=== PATIENT | male | born 1955 | race African-American/Black ===

== ENCOUNTER → 2016-08-14 | Outpatient (CLI) | payer OTHER ==
[~2016-08-14] MED LIST: ALEVE LIQCAPS PO; AMLODIPINE BESY10 MG PO; ASPIRIN E.C. 8181 MG PO; BYSTOLIC5 MG PO; ENALAPRIL20 MG PO; EXCEDRIN MIGRAI1 TAB PO; EXCEDRIN1 TAB PO; FLEXERIL10 MG PO; LORTAB 5/500 501 TAB PO; NORCO 325 MG-51 TAB PO; NORVASC 10MG10 MG PO; PRAVACHOL 40MG40 MG PO; PRINIVIL20 MG PO; SIMVASTATIN10 MG PO; VITAMIN B12 PO
[2016-08-14 17:56] LABS: BASO % 0.8 % (0.0-2.0); EOS # 0.1 (0.0-0.7); EOS % 2.6 % (0-4.0); GRAN # 2.5 (1.4-6.5); GRAN % 50.3 % (42.2-75.2); HEMATOCRIT 47.1 % (42.0-52.0); HEMOGLOBIN 15.7 g/dl (13.5-18.0); LYMPH # 1.8 (1.2-3.4); LYMPH % 35.5 % (20.0-51.0); MEAN CELL VOLUME 86 fl (80.0-100.0); MEAN CORPUSCULAR HEMOGLOBIN 29 pg (27.0-31.0); MEAN CORPUSCULAR HGB CONC 33 g/dl (33.0-37.0); MEAN PLATELET VOLUME 10.6 fl (7.4-10.4); MONO # 0.5 (0.1-0.6); MONO % 10.6 % (1.7-9.3); PLATELET COUNT 232 K/mm3 (130-400); RED BLOOD COUNT 5.48 M/mm3 (4.20-5.60); REDCELL DISTRIBUTION WIDTH-CV 13.1 % (11.5-14.5)
[2016-08-14 17:58] LABS: ADJUSTED CALCIUM 9.8 mg/dL (8.4-10.2); ALBUMIN 4.2 gm/dL (3.5-5.0); BILIRUBIN,TOTAL 0.9 mg/dL (0.0-1.0); CREATININE, serum 1.1 mg/dL (0.66-1.25); POTASSIUM 4.4 mmol/L (3.4-5.0); TOTAL PROTEIN 7.5 gm/dL (6.4-8.2)
[2016-08-14 18:07] LABS: PROTHROMBIN TIME 10.9 SECONDS (9.7-12.8)
== END ==
LOC: COL.LAB 16:29
PROVIDERS: Orthopaedic Surgery
DX: Z01.812 Encounter for preprocedural laboratory examination (principal)

== ENCOUNTER → 2016-08-23 | Outpatient (CLI) | payer OTHER ==
[2016-08-23 18:46] LABS: PH 6 (5-8); SQUAMOUS EPITHELIAL None Seen /hpf; URINE APPEARANCE Clear; URINE BACTERIA None Seen /hpf; URINE BILIRUBIN Negative (NEGATIVE); URINE BLOOD Negative (NEGATIVE); URINE COLOR Straw; URINE GLUCOSE Negative (NEGATIVE); URINE KETONE Negative (NEGATIVE); URINE RBC None Seen /hpf; URINE UROBILINOGEN Negative (NEGATIVE); URINE WBC 0-2 /hpf
== END ==
LOC: COL.LAB 17:43
PROVIDERS: Neurological Surgery
DX: Z01.812 Encounter for preprocedural laboratory examination (principal); M25.862 Other specified joint disorders, left knee

== ENCOUNTER → 2016-09-24 | Outpatient (CLI) | payer OTHER | LOC: COL.LAB 16:11 | DX: R31.9 Hematuria, unspecified (principal) | CPT/HCPCS: G0103 ==

== ENCOUNTER → 2016-09-26 | Outpatient (CLI) | payer OTHER ==
[2016-09-26 17:40] LABS: BASO # 0.1 (0.0-0.2); BASO % 0.9 % (0.0-2.0); EOS # 0.2 (0.0-0.7); GRAN # 2.7 (1.4-6.5); GRAN % 49.9 % (42.2-75.2); HEMATOCRIT 51.2 % (42.0-52.0); HEMOGLOBIN 17.1 g/dl (13.5-18.0); LYMPH % 35.8 % (20.0-51.0); MEAN CELL VOLUME 88 fl (80.0-100.0); MEAN CORPUSCULAR HEMOGLOBIN 29 pg (27.0-31.0); MEAN CORPUSCULAR HGB CONC 33 g/dl (33.0-37.0); MEAN PLATELET VOLUME 10.6 fl (7.4-10.4); MONO # 0.5 (0.1-0.6); MONO % 9.2 % (1.7-9.3); PLATELET COUNT 181 K/mm3 (130-400); RED BLOOD COUNT 5.85 M/mm3 (4.20-5.60); REDCELL DISTRIBUTION WIDTH-CV 13.6 % (11.5-14.5); WHITE BLOOD COUNT 5.5 K/mm3 (4.8-10.8)
== END ==
LOC: COL.LAB 17:09
PROVIDERS: Registered Nurse
DX: E78.2 Mixed hyperlipidemia (principal)

== ENCOUNTER → 2016-09-30 | Outpatient (CLI) | payer OTHER ==
[2016-09-30 18:01] LABS: PH 5 (5-8); SQUAMOUS EPITHELIAL 0-2 /hpf; URINE APPEARANCE Clear; URINE BACTERIA None Seen /hpf; URINE BILIRUBIN Negative (NEGATIVE); URINE BLOOD Negative (NEGATIVE); URINE COLOR Yellow; URINE GLUCOSE Negative (NEGATIVE); URINE KETONE Negative (NEGATIVE); URINE RBC 0-2 /hpf; URINE UROBILINOGEN Negative (NEGATIVE); URINE WBC 0-2 /hpf
== END ==
LOC: COL.LAB 17:19
PROVIDERS: Registered Nurse
DX: R31.9 Hematuria, unspecified (principal)

== ENCOUNTER → 2016-10-22 | Outpatient (CLI) | payer OTHER | LOC: COL.RAD 13:14 | DX: M79.605 Pain in left leg (principal); R60.0 Localized edema ==

== ENCOUNTER → 2016-11-28 | Outpatient (CLI) | payer OTHER | LOC: COL.RAD 14:36 | DX: N20.0 Calculus of kidney (principal); N40.0 Benign prostatic hyperplasia without lower urinary tract symptoms | CPT/HCPCS: Q9967 ==

== ENCOUNTER 2017-09-21 11:42 | Emergency (ER) | payer OTHER ==
[~2017-09-21] VITALS: Ht 182.9 cm; Wt 99.1 kg
[2017-09-21 11:46] VITALS: TEMP 98.1
[2017-09-21] MEDS ORDERED: VASOTEC20 MG PO (11:56)
[2017-09-21] MEDS ORDERED: BYSTOLIC10 MG PO (11:57)
[2017-09-21] MEDS ORDERED: ASPIRIN 32325 MG/TAB PO (11:57)
[2017-09-21] MEDS ORDERED: NORCO 325 MG-51 TAB PO (12:26)
[2017-09-21 12:33] VITALS: BP 145/99; PULSE 68
== END 2017-09-21 12:34 | disposition home or self-care (01) ==
LOC: COL.ER 11:42
DX: S46.911A Strain of unspecified muscle, fascia and tendon at shoulder and upper arm level, right arm, initial encounter (principal); I10 Essential (primary) hypertension; Z79.82 Long term (current) use of aspirin; X50.0XXA Overexertion from strenuous movement or load, initial encounter

== ENCOUNTER → 2017-10-17 | Outpatient (CLI) | payer OTHER ==
[~2017-10-17] MED LIST changes: +ASPIRIN 32325 MG/TAB PO; +BYSTOLIC10 MG PO; +VASOTEC20 MG PO
== END ==
LOC: COL.RAD 14:55
DX: D17.1 Benign lipomatous neoplasm of skin and subcutaneous tissue of trunk (principal)

== ENCOUNTER → 2018-08-11 | Outpatient (CLI) | payer OTHER | LOC: MHCPAIN 15:27 | DX: G89.29 Other chronic pain (principal); M79.2 Neuralgia and neuritis, unspecified; M25.561 Pain in right knee; M25.562 Pain in left knee | CPT/HCPCS: G0463 ==

== ENCOUNTER → 2018-08-20 | Outpatient (CLI) | payer OTHER | LOC: MHCPAIN 13:54 | DX: M17.12 Unilateral primary osteoarthritis, left knee (principal); M25.562 Pain in left knee ==

== ENCOUNTER → 2018-09-16 | Outpatient (CLI) | payer OTHER | LOC: MHCPAIN 15:19 | DX: G89.29 Other chronic pain (principal); M79.2 Neuralgia and neuritis, unspecified | CPT/HCPCS: G0463 ==

== ENCOUNTER → 2018-10-14 | Outpatient (CLI) | payer OTHER | LOC: MHCPAIN 15:23 | DX: G89.29 Other chronic pain (principal); M79.2 Neuralgia and neuritis, unspecified | CPT/HCPCS: G0463 ==

== ENCOUNTER → 2018-11-05 | Outpatient (CLI) | payer OTHER ==
[2018-11-05 15:33] LABS: BASO # 0.1 (0.0-0.2); EOS # 0.1 (0.0-0.7); EOS % 2.4 % (0-4.0); GRAN # 2.4 (1.4-6.5); GRAN % 48.3 % (42.2-75.2); HEMATOCRIT 51.3 % (42.0-52.0); HEMOGLOBIN 16.9 g/dl (13.5-18.0); LYMPH # 1.8 (1.2-3.4); LYMPH % 35.5 % (20.0-51.0); MEAN CELL VOLUME 88 fl (80.0-100.0); MEAN CORPUSCULAR HEMOGLOBIN 29 pg (27.0-31.0); MEAN CORPUSCULAR HGB CONC 33 g/dl (33.0-37.0); MEAN PLATELET VOLUME 10.3 fl (7.4-10.4); MONO # 0.6 (0.1-0.6); MONO % 12.6 % (1.7-9.3); PLATELET COUNT 203 K/mm3 (130-400); RED BLOOD COUNT 5.81 M/mm3 (4.20-5.60); REDCELL DISTRIBUTION WIDTH-CV 12.4 % (11.5-14.5)
[2018-11-05 15:40] LABS: ALBUMIN 4.3 gm/dL (3.5-5.0); BILIRUBIN,TOTAL 0.6 mg/dL (0.0-1.0); CALCIUM 9.8 mg/dL (8.4-10.2); CHOLESTEROL RISK RATIO 2.3; CREATININE, serum 1.18 (0.66-1.25); POTASSIUM 4.5 mmol/L (3.4-5.0); TOTAL PROTEIN 7.5 gm/dL (6.4-8.2)
[2018-11-05 16:10] LABS: TSH w REFLEX 1.3 uIU/mL (0.465-4.680)
[2018-11-06 22:12] LABS: URINE MICROALBUMIN 0.7 mg/dL (0.0-1.7)
== END ==
LOC: COL.VAS 14:27
PROVIDERS: Registered Nurse
DX: M79.89 Other specified soft tissue disorders (principal); I25.10 Atherosclerotic heart disease of native coronary artery without angina pectoris; I10 Essential (primary) hypertension; E78.2 Mixed hyperlipidemia; Z79.899 Other long term (current) drug therapy; Z96.652 Presence of left artificial knee joint

== ENCOUNTER 2020-07-14 19:13 | Emergency (ER) | payer OTHER ==
[~2020-07-14] VITALS: Ht 182.9 cm; Wt 104.5 kg
[2020-07-14 19:30] VITALS: TEMP 100.1
[2020-07-14 20:16] LABS: ALBUMIN 4.2 gm/dL (3.5-5.0); BILIRUBIN,TOTAL 0.8 mg/dL (0.0-1.0); C-REACTIVE PROTEIN 4.3 mg/dL (0.0-0.9); CALCIUM 8.9 mg/dL (8.4-10.2); CREATININE, serum 1.19 (0.66-1.25); POTASSIUM 3.6 mmol/L (3.4-5.0); TOTAL PROTEIN 7.5 gm/dL (6.4-8.2)
[2020-07-14 20:19] LABS: BASO % 0.2 % (0.0-2.0); EOS % 0.4 % (0-4.0); GRAN # 3.2 (1.4-6.5); HEMOGLOBIN 16.5 g/dl (13.5-18.0); LYMPH # 0.9 (1.2-3.4); LYMPH % 18.1 % (20.0-51.0); MEAN CELL VOLUME 89 fl (80.0-100.0); MEAN CORPUSCULAR HEMOGLOBIN 29 pg (27.0-31.0); MEAN CORPUSCULAR HGB CONC 33 g/dl (33.0-37.0); MEAN PLATELET VOLUME 10.5 fl (7.4-10.4); MONO # 0.6 (0.1-0.6); MONO % 13.1 % (1.7-9.3); PLATELET COUNT 160 K/mm3 (130-400); RED BLOOD COUNT 5.65 M/mm3 (4.20-5.60); REDCELL DISTRIBUTION WIDTH-CV 12.1 % (11.5-14.5)
[2020-07-14] MEDS ORDERED: ZITHROMAX 250M250 MG PO (22:27)
[2020-07-14 23:05] VITALS: BP 181/117; PULSE 84
== END 2020-07-14 23:06 | disposition home or self-care (01) ==
LOC: COL.ER 19:13
PROVIDERS: Nurse Practitioner
DX: U07.1 COVID-19 (principal); I10 Essential (primary) hypertension; Z79.82 Long term (current) use of aspirin
CPT/HCPCS: J7030; Q9967

== ENCOUNTER 2020-07-22 12:33 | Emergency (ER) | payer OTHER ==
[~2020-07-22] VITALS: Ht 182.9 cm; Wt 104.5 kg
[~2020-07-22 12:33] MED LIST changes: +ZITHROMAX 250M250 MG PO
[2020-07-22 12:40] VITALS: BP 147/93; TEMP 97.9
[2020-07-22] MEDS ORDERED: PREDNISONE20 MG PO (13:04)
[2020-07-22] MEDS ORDERED: BENADRYL25 M2 PO (13:04)
[2020-07-22] MEDS ORDERED: PEPCID 20MG TAB20 MG PO (13:04)
[2020-07-22 13:16] VITALS: PULSE 75
== END 2020-07-22 13:16 | disposition home or self-care (01) ==
LOC: COL.ER 12:33
DX: U07.1 COVID-19 (principal); T78.3XXA Angioneurotic edema, initial encounter; I10 Essential (primary) hypertension; Z79.82 Long term (current) use of aspirin
CPT/HCPCS: J1100

== ENCOUNTER → 2020-12-28 | Outpatient (CLI) | payer OTHER, MEDICARE ==
[~2020-12-28] MED LIST changes: +BENADRYL25 M2 PO; +PEPCID 20MG TAB20 MG PO; +PREDNISONE20 MG PO
== END ==
LOC: COL.VAS 13:23
DX: I51.7 Cardiomegaly (principal); I25.10 Atherosclerotic heart disease of native coronary artery without angina pectoris

== ENCOUNTER 2021-07-09 10:02 | Emergency (ER) | payer OTHER, MEDICARE ==
[~2021-07-09] VITALS: Ht 182.9 cm; Wt 102.3 kg
[2021-07-09 10:16] VITALS: TEMP 97.8
[2021-07-09] MEDS ORDERED: CYMBALTA 30MG30 MG (10:28)
[2021-07-09] MEDS ORDERED: LASIX 40MG TABL40 MG PO (10:28)
[2021-07-09] MEDS ORDERED: ALIGN (10:29)
[2021-07-09] MEDS ORDERED: CRESTOR20 MG PO (10:29)
[2021-07-09] MEDS ORDERED: COZAAR 50MG50 MG/TAB (10:29)
[2021-07-09] MEDS ORDERED: KLOR-CON SPRIN10 MEQ PO (10:29)
[2021-07-09] MEDS ORDERED: NORCO 325 MG-51 TAB PO (14:12)
[2021-07-09 14:30] VITALS: BP 142/92; PULSE 84
== END 2021-07-09 14:45 | disposition home or self-care (01) ==
LOC: COL.ER 10:02
DX: M16.12 Unilateral primary osteoarthritis, left hip (principal); I11.0 Hypertensive heart disease with heart failure; I50.9 Heart failure, unspecified; E78.5 Hyperlipidemia, unspecified; Z79.899 Other long term (current) drug therapy
CPT/HCPCS: J1885; J2270; J3360

== ENCOUNTER → 2022-03-20 | Outpatient (CLI) | payer OTHER, MEDICARE ==
[~2022-03-20] MED LIST changes: +ALIGN; +COZAAR 50MG50 MG/TAB; +CRESTOR20 MG PO; +CYMBALTA 30MG30 MG; +KLOR-CON SPRIN10 MEQ PO; +LASIX 40MG TABL40 MG PO
== END ==
LOC: COL.RAD 08:53
DX: R10.32 Left lower quadrant pain (principal)

== ENCOUNTER → 2022-04-26 | Outpatient (CLI) | payer OTHER, MEDICARE | LOC: COL.RAD 14:47 | DX: N40.0 Benign prostatic hyperplasia without lower urinary tract symptoms (principal) | CPT/HCPCS: Q9967 ==

== ENCOUNTER → 2022-12-11 | Outpatient (CLI) | payer OTHER, MEDICARE | LOC: COL.RAD 16:33 | DX: M17.11 Unilateral primary osteoarthritis, right knee (principal) ==